=== PATIENT | male | born 1995 | race Caucasian/White ===

== ENCOUNTER 2022-09-12 15:16 | Inpatient (IN) | payer MEDICAID ==
[~2022-09-12] VITALS: Ht 182.9 cm; Wt 113.4 kg
[2022-09-12] MEDS ORDERED: VANCOMYCIN 1 GM in IV D5W 250 ML IV ONE (16:00)
[2022-09-12] MEDS ORDERED: IV NS 0.9% 1,000 ML BAG IV ONE (16:00)
[2022-09-12] MEDS ORDERED: KETOROLAC TROMETHAMINE INJ 30 MG/ML VIAL IV ONE (16:00)
--- NOTE | 2022-09-12 16:00 | NUR ---
RECEVED PT 26 YRS MALE CAME FROM HOME c/o pain and swallen on lt hand for 2 days
[2022-09-12] MEDS ORDERED: CLIN300C12 PO (16:07)
[2022-09-12] MEDS ORDERED: IBUP-1955 PO (16:07)
[2022-09-12 16:12] LABS: BASOPHILS % (AUTO) 0.2 % (0.0-2.0); EOSINOPHILS % (AUTO) 1.9 % (0.0-6.0); HEMATOCRIT 47 % (39-51); HEMOGLOBIN 15.6 g/dL (13.5-17.5); LYMPHOCYTES # (AUTO) 1.6 K/uL (0.8-4.8); MEAN CORPUSCULAR HGB CONC 33 g/dl (31.0-36.0); MEAN CORPUSCULAR VOLUME 92 fL (80-96); MONOCYTES # (AUTO) 0.7 K/uL (0.1-1.30); MONOCYTES % (AUTO) 6.2 % (2.0-12.0); NEUTROPHILS % (AUTO) 77.7 % (43.0-81.0); RED BLOOD CELL COUNT(AUTO) 5.08 MIL/uL (4.5-6.0); WHITE BLOOD COUNT (AUTO) 11.6 K/uL (4.3-11.0)
--- NOTE | 2022-09-12 16:15 | NUR ---
INSERTED ANGO CATHETER G 20 ON LT AC BLOOD DROW AND SENT TO LAB
[2022-09-12] MEDS ORDERED: KETOROLAC TROMETHAMINE INJ 30 MG/ML VIAL ONE (16:31)
[2022-09-12] MEDS ORDERED: VANCOMYCIN 1 GM VIAL ONE (16:31)
[2022-09-12 16:45] LABS: CALCIUM, SERUM 9.6 mg/dL (8.5-10.1); CREATININE 0.9 mg/dL (0.6-1.3); POTASSIUM 4.3 mmol/L (3.5-5.1)
--- NOTE | 2022-09-12 16:49 | NUR ---
MOVE SHEET SUBMITTED.
[2022-09-12 16:51] LABS: ALBUMIN 4.2 g/dL (3.4-5.0); BILIRUBIN,DIRECT 0.2 mg/dL (0.0-0.2); BILIRUBIN,TOTAL 0.3 mg/dL (0.2-1.0); TOTAL PROTEIN, SERUM 8.2 g/dL (6.4-8.2)
--- NOTE | 2022-09-12 17:35 | NUR ---
RESTING AT THIS TIME NO PAIN
--- NOTE | 2022-09-12 18:39 | NUR ---
GOT BED 329 PENDING PEER TO PEER.
[2022-09-12 19:13] LABS: PLATELET COUNT (AUTO) 359 K/uL (150-450)
--- NOTE | 2022-09-12 19:46 | NUR ---
HAND OFF ARINA NIEVES
--- NOTE | 2022-09-12 19:50 | NUR ---
COVID SWAB DONE AND SENT TO LAB
--- NOTE | 2022-09-12 20:41 | NUR ---
REPORT GIVEN TO EZEQUIEL EARL FOR MALA
[2022-09-12] MEDS ORDERED: CEFEPIME 1 GM in IV D5W 50 ML IV SCH (21:00)
[2022-09-12] MEDS ORDERED: ONDANSETRON HCL/PF 4 MG/2 ML VIAL IV PRN (21:00)
[2022-09-12] MEDS ORDERED: ZOLPIDEM TARTRATE 5 MG TABLET PO PRN (21:00)
[2022-09-12] MEDS ORDERED: ACETAMINOPHEN 325 MG TABLET PO PRN (21:00)
[2022-09-12] MEDS ORDERED: IBUPROFEN 600 MG TABLET PO PRN (21:00)
[2022-09-12] MEDS ORDERED: HYDROCODONE/APAP 5/325MG TABLET PO PRN (21:00)
--- NOTE | 2022-09-12 21:35 | NUR ---
RN NOTE RECEIVING PATIENT FROM ER PATIENT ARRIVED TO UNIT VIA [facility]ERS FROM ER. PATIENT ACCOMPANIED BY HIS FIANCEE AND MOTHER. VS WNL. A/OX4. NO S/S OF DISTRESS, BREATHING WITHOUT DIFFICULTY ON ROOM AIR. LAC #20 INTACT AND PATENT. PATIENT WAS ORIENTED TO THE UNIT. PATIENT GIVEN CALL BALDERAS AND EDUCATED ON ITS USE. PATIENT'S BELONGINGS ACCOUNTED FOR, LOGGED INTO SHEET, AND PLACED IN CHART. PATIENT REMAINS STABLE; SAFETY MEASURES IN PLACE: BED LOCKED AND AT LOWEST POSITION, RAILS UP X2, CALL BALDERAS WITHIN REACH. WILL CONTINUE TO MONITOR PATIENT.
--- NOTE | 2022-09-12 21:37 | NUR ---
PT TRANSPORTED TO UNIT ON [facility] WITH EMT AT BEDSIDE. PT IS IN STABLE CONDITION FOR TRANPSPORT
[2022-09-12] MEDS ORDERED: CEFEPIME 1 GM VIAL ONE (23:21)
[2022-09-12] MEDS ORDERED: VANCOMYCIN 500 MG VIAL ONE (23:22)
[2022-09-12 23:49] VITALS: BP 132/66
[2022-09-13] MEDS ORDERED: CEFEPIME 1 GM in IV D5W 50 ML IV SCH ×2
[2022-09-13] MEDS ORDERED: VANCOMYCIN 1 GM VIAL ONE (01:04)
[2022-09-13] MEDS ORDERED: VANCOMYCIN 1.5 GM in IV D5W 500ml IV SCH (05:00)
--- NOTE | 2022-09-13 06:30 | NUR ---
RN CLOSING NOTE PATIENT AWAKE IN BED. A/OX4. NO S/S OF DISTRESS, BREATHING WITHOUT DIFFICULTY ON ROOM AIR. LAC #20 SL INTACT AND PATENT. SAFETY MEASURES IN PLACE: BED LOCKED AND AT LOWEST POSITION, RAILS UP X2, CALL BALDERAS WITHIN REACH. WILL ENDORSE TO NEXT SHIFT FOR MALA.
[2022-09-13 07:09] LABS: BASOPHILS % (AUTO) 0.2 % (0.0-2.0); EOSINOPHILS % (AUTO) 4.1 % (0.0-6.0); HEMATOCRIT 40 % (39-51); HEMOGLOBIN 13.6 g/dL (13.5-17.5); LYMPHOCYTES # (AUTO) 3.6 K/uL (0.8-4.8); LYMPHOCYTES % (AUTO) 34.7 % (20.0-44.0); MEAN CORPUSCULAR HGB CONC 34 g/dl (31.0-36.0); MEAN CORPUSCULAR VOLUME 92 fL (80-96); MONOCYTES # (AUTO) 0.6 K/uL (0.1-1.30); MONOCYTES % (AUTO) 5.7 % (2.0-12.0); NEUTROPHILS # (AUTO) 5.8 K/uL (1.8-8.9); NEUTROPHILS % (AUTO) 55.3 % (43.0-81.0); PLATELET COUNT (AUTO) 277 K/uL (150-450); RED BLOOD CELL COUNT(AUTO) 4.38 MIL/uL (4.5-6.0); WHITE BLOOD COUNT (AUTO) 10.4 K/uL (4.3-11.0)
[2022-09-13 07:51] LABS: CALCIUM, SERUM 8.7 mg/dL (8.5-10.1); CREATININE 0.8 mg/dL (0.6-1.3); POTASSIUM 3.6 mmol/L (3.5-5.1)
--- NOTE | 2022-09-13 07:56 | NUR ---
MS RN OPENING NOTE Received patient in bed sleeping, easily arousable to name, alert and oriented x 4. Patient denies any pain and seems comfortable. Vital signs are stable. Safety protocals in place: bed in lowest positon; bed siderails up x 2; bed brakes locked on; and call wetzel/light within patient's reach. Will continue to care for patient and monitor per MD POC.
[2022-09-13 08:00] VITALS: BP 146/77
[2022-09-13] MEDS: CEFEPIME 1 GM in IV D5W 50 ML IV SCH ×2 (10:11→17:13)
[2022-09-13] MEDS: VANCOMYCIN 1 GM in IV D5W 250 ML IV SCH ×2 (13:26→21:27)
[2022-09-13 16:00] VITALS: BP 162/64
[2022-09-13 16:20] VITALS: BP 124/78
--- NOTE | 2022-09-13 19:09 | NUR ---
RN CLOSING NOTE PATIENT AWAKE IN BED. A/OX4. NO S/S OF DISTRESS, BREATHING WITHOUT DIFFICULTY ON ROOM AIR. New PIV ,#22 gauge inserted to left upper arm, saline locked, patent, and intact. All scheduled IV antibiotics given. SAFETY MEASURES IN PLACE: BED LOCKED AND AT LOWEST POSITION, RAILS UP X2, CALL BALDERAS WITHIN REACH. WILL ENDORSE TO HOOKER INSPECTOR FOR MALA.
--- NOTE | 2022-09-13 19:30 | NUR ---
MS RN OPENING NOTE RECEIVED PT AWAKE IN BED. FAMILY AT BEDSIDE. A/O X4 AND ABLE TO MAKE NEEDS KNOWN. PT STABLE ON ROOM AIR. NO SOB OR S/S OF RESPIRATORY DISTRESS. BREATHING EVEN AND UNLABORED. IV ACCESS TEODORO 22G SL, INTACT AND PATENT. SAFETY PRECAUTIONS IN PLACE. BED IN LOWEST LOCKED POSITION, HOB ELEVATED, SIDE RAILS UP X2, AND CALL LIGHT AND TABLE WITHIN REACH. ALL NEEDS MET AT THIS TIME.
[2022-09-13 20:00] VITALS: BP 139/73
--- NOTE | 2022-09-13 20:53 | NUR ---
RN NOTE PT LEFT FOR SMOKE BREAK AT THIS TIME. CLEARED FOR SMOKE BREAK WITH CHARGE NURSE ISAMAR. SMOKING ACKNOWLEDGEMENT PAPER SIGNED AND PUT IN CHART. ESCORTED DOWN WITH FAMILY MEMBER. SECURITY AWARE.
--- NOTE | 2022-09-13 21:16 | NUR ---
RN NOTE PT RETURNED TO UNIT AT THIS TIME. VITALS STABLE AND WNL.
[2022-09-14] MEDS: CEFEPIME 1 GM in IV D5W 50 ML IV SCH ×3 (01:00→17:07)
[2022-09-14] MEDS: VANCOMYCIN 1 GM in IV D5W 250 ML IV SCH (05:29)
--- NOTE | 2022-09-14 06:46 | NUR ---
MS RN CLOSING NOTE PT RESTING IN BED, VERBALLY RESPONSIVE. A/O X4 AND ABLE TO MAKE NEEDS KNOWN. PT STABLE ON ROOM AIR. NO SOB OR S/S OF RESPIRATORY DISTRESS. BREATHING EVEN AND UNLABORED. IV ACCESS TEODORO 22G SL, INTACT AND PATENT. ALL DUE MEDS GIVEN ORDERED. SAFETY PRECAUTIONS IN PLACE AT ALL TIMES. BED IN LOWEST LOCKED POSITION, HOB ELEVATED, SIDE RAILS UP X2, AND CALL LIGHT AND TABLE WITHIN REACH. ALL NEEDS MET AT THIS TIME AND WILL ENDORSE TO ONCOMING NURSE FOR MALA.
[2022-09-14 07:04] LABS: CALCIUM, SERUM 9.1 mg/dL (8.5-10.1); CREATININE 0.8 mg/dL (0.6-1.3)
--- NOTE | 2022-09-14 07:30 | NUR ---
MS RN OPENING NOTE Received patient in bed, awake, alert and oriented x 4. Patient denies any pain and seems comfortable. Vital signs are stable. Safety protocols in place: bed in lowest position; bed side rails up x 2; bed brakes locked on; and call wetzel/light within patient's reach. Will continue to care for patient and monitor per MD POC.
[2022-09-14] MEDS ORDERED: DOXY100T2 PO (07:59)
[2022-09-14] MEDS ORDERED: VANCOMYCIN 1.25 GM in IV D5W 250 ML IV SCH (14:00)
--- NOTE | 2022-09-14 18:37 | NUR ---
MS HARNESS RACING HANDICAPPER PT HOME NOTE Patient tolerated the removal of the # 22 gauge PIV catheter from his left upper arm well. Catheter removed fully intact without any complications. Patient demonstrated understanding of his home care discharge instructions using teach back method in his own words. Patient accounted for all of his listed belongings/valuables as in his possession upon discharge from the hospital. Patient departed [facility], walking steady, independently to private car bound for his home, accompanied by his fiancee, Margoth, and his mother, Delilah, at 18:35 hours.
== END 2022-09-14 18:53 | disposition home or self-care (01) | DRG 383 ==
LOC: ER 15:25 → MED 21:13
PROVIDERS: ADMIT Internal Medicine; ATTEND Internal Medicine
DX: L03.114 Cellulitis of left upper limb (principal); F17.200 Nicotine dependence, unspecified, uncomplicated; Z20.822 Contact with and (suspected) exposure to COVID-19; Z87.2 Personal history of diseases of the skin and subcutaneous tissue
CPT/HCPCS: 36415; 73130-TC; 80048-TC; 80076-TC; 80202-TC; 85025-TC; 85652-TC; 86140-TC; 87081-TC; A4223; G0378; J0692; J1885; J3370; J7030; J7040; J7060

== ENCOUNTER 2022-12-19 13:42 | Emergency (ER) | payer MEDICAID ==
[~2022-12-19] VITALS: Ht 182.9 cm; Wt 117.9 kg
[~2022-12-19 13:42] MED LIST: DOXY100T2 PO
[2022-12-19 14:30] VITALS: BP 161/91
[2022-12-19] MEDS ORDERED: PRED50TA PO (14:44)
== END 2022-12-19 14:50 | disposition home or self-care (01) ==
LOC: ER 13:50
DX: R21 Rash and other nonspecific skin eruption (principal)